=== PATIENT | female | born 1960 | race Caucasian/White ===

== ENCOUNTER 2018-10-24 22:07 | Emergency (ER) | payer MEDICAID, OTHER ==
[~2018-10-24] VITALS: Ht 154.9 cm; Wt 74.9 kg
[~2018-10-24 22:07] MED LIST: CLONIDINE; IBUPROFEN; METOPROLOL
[2018-10-24 22:17] VITALS: Ht 154.9 cm; Wt 74.9 kg
[2018-10-25] MEDS ORDERED: METO-448 PO (01:03)
--- NOTE | 2018-10-25 02:05 | ERD ---
ER Documentation Chief Complaint Chief Complaint chest pain with elevated blood pressure HPI 58-year-old female with chest pain with elevated blood pressure. Denies fevers chills nausea vomiting patient is very anxious. She denies any other current complaints. Patient said she had an argument with her grandsons earlier today and ultimately started having palpitations and pressure-like chest pain on the right side of her chest. ROS All systems reviewed and are negative except as per history of present illness. Medications Home Meds Reported Medications Metoprolol Tartrate* (Lopressor*) 25 Mg Tab, 25 MG PO BID, #60 TAB 10/25/18 Discontinued Reported Medications [Ibuprofen] No Conflict Check 03/21/12 [Metoprolol] No Conflict Check 03/21/12 [Clonidine] No Conflict Check 03/21/12 Allergies Allergies: Coded Allergies: No Known Drug Allergies (Verified Allergy, Mild, 10/25/18) PMhx/Soc History of Surgery: No Anesthesia Reaction: No Hx Neurological Disorder: No Hx Respiratory Disorders: No Hx Cardiac Disorders: Yes (HTN) Hx Psychiatric Problems: No Hx Miscellaneous Medical Probl: Yes (HTN) Hx Alcohol Use: No Hx Substance Use: No Hx Tobacco Use: No Smoking Status: Never smoker Physical Exam Vitals Vital Signs Date Temp Pulse Resp B/P (MAP) Pulse Ox O2 O2 Flow FiO2 Time Delivery Rate 10/24/18 97.7 94 18 188/86 96 22:17 (120) Physical Exam Const: No acute distress Head: Atraumatic Eyes: Normal Conjunctiva ENT: Normal External Ears, Nose and Mouth. Neck: Full range of motion. No meningismus. Resp: Clear to auscultation bilaterally Cardio: Regular rate and rhythm, no murmurs Abd: Soft, non tender, non distended. Normal bowel sounds Skin: No petechiae or rashes Back: No midline or flank tenderness Ext: No cyanosis, or edema Neur: Awake and alert Psych: Normal Mood and Affect Result Diagram: 10/24/18 7707 10/24/18 4600 Results 24 hrs Laboratory Tests Test 10/24/18 23:44 10/24/18 23:45 White Blood Count 5.6 10^3/ul Red Blood Count 5.26 10^6/ul Hemoglobin 14.3 g/dl Hematocrit 44.1 % Mean Corpuscular Volume 83.8 fl Mean Corpuscular Hemoglobin 27.2 pg Mean Corpuscular Hemoglobin Concent 32.4 g/dl Red Cell Distribution Width 12.9 % Platelet Count 236 10^3/UL Mean Platelet Volume 11.3 fl Immature Granulocytes % 0.400 % Neutrophils % 46.2 % Lymphocytes % 37.3 % Monocytes % 10.2 % Eosinophils % 5.0 % Basophils % 0.9 % Nucleated Red Blood Cells % 0.0 /100WBC Immature Granulocytes # 0.020 10^3/ul Neutrophils # 2.6 10^3/ul Lymphocytes # 2.1 10^3/ul Monocytes # 0.6 10^3/ul Eosinophils # 0.3 10^3/ul Basophils # 0.1 10^3/ul Nucleated Red Blood Cells # 0.0 10^3/ul Sodium Level 143 mmol/L Potassium Level 3.7 mmol/L Chloride Level 103 mmol/L Carbon Dioxide Level 32 mmol/L Anion Gap 8 Blood Urea Nitrogen 17 mg/dl Creatinine 0.57 mg/dl Est Glomerular Filtrat Rate mL/min > 60 mL/min Glucose Level 107 mg/dl Calcium Level 9.1 mg/dl Total Bilirubin 0.2 mg/dl Direct Bilirubin 0.00 mg/dl Indirect Bilirubin 0.2 mg/dl Aspartate Amino Transf (AST/SGOT) 20 IU/L Alanine Aminotransferase (ALT/SGPT) 18 IU/L Alkaline Phosphatase 97 IU/L Troponin I < 0.012 ng/ml B-Type Natriuretic Peptide 75 PG/ML Total Protein 7.6 g/dl Albumin 4.2 g/dl Globulin 3.40 g/dl Albumin/Globulin Ratio 1.23 Procedures/MDM EKG: Rate/Rhythm: [Normal Sinus Rhythm] QRS, ST, T-waves: [No changes consistent w/ acute ischemia] Impression: [No evidence of ischemia or arrhythmia] as Chest X-ray 1V Interpreted by me: Soft Tissue: No acute abnormalities Bones: No acute abnormalities Mediastinum/Cardiac Silhouette/Lungs: [No acute abnormalities] Patient's thoracic symptoms have stabilized while in the department and are stable for outpatient follow up. Exam and work up not consistent w/ ischemia, arrhythmia, PE or dissection. Departure Diagnosis: Primary Impression: Chest pain Chest pain type: unspecified Qualified Codes: R07.9 - Chest pain, unspecified Condition: Stable Patient Instructions: Chest Pain, Uncertain Cause TOBI MTZ Oct 25, 2018 02:05
[2018-10-25 03:04] VITALS: BP 129/67; PULSE 88; RESP 16
== END 2018-10-25 03:05 | disposition home or self-care (01) ==
LOC: E/R 22:07
DX: R07.9 Chest pain, unspecified (principal); I10 Essential (primary) hypertension
CPT/HCPCS: 36415; 71045; 80053; 83880; 84484; 85025; 93005; Z7502